=== PATIENT | female | born 2000 | race Caucasian/White ===

== ENCOUNTER 2023-11-21 09:07 | Emergency (ER) | payer SELFPAY ==
[2023-11-21] MEDS ORDERED: Sodium Chloride 0.9% 10 ML Syringe FLUSH PRN (09:55)
[2023-11-21 10:23] LABS: BASOPHILS ABSOLUTE AUTO 0.03 K/uL (0.02-0.10); BASOPHILS PERCENT AUTO 0.3 % (0.0-0.5); HEMATOCRIT 41.3 % (37.0-47.0); HEMOGLOBIN 13.4 g/dL (11.5-16.5); LYMPHOCYTES ABSOLUTE AUTO 1.78 K/uL (1.50-4.00); LYMPHOCYTES PERCENT AUTO 17.4 % (20.0-40.0); MEAN CORPUSCULAR HGB CONC 32.4 g/dL (31.0-35.0); MEAN CORPUSCULAR VOLUME 93 fL (76-96); MEAN PLATELET VOLUME 10.9 fL (6.0-10.0); MONOCYTES PERCENT AUTO 8.8 % (3.0-10.0); NEUTROPHILS ABSOLUTE AUTO 7.44 K/uL (2.00-7.50); NEUTROPHILS PERCENT AUTO 72.5 % (45.0-70.0); PLATELET COUNT,PLT 225 K/uL (150-500); RED BLOOD CELL COUNT 4.46 M/uL (3.80-5.80); RED CELL DISTRIBUTION WIDTH 12.8 % (11.0-16.0); WHITE BLOOD CELL COUNT,WBC 10.3 K/uL (4.0-11.0)
[2023-11-21 10:36] LABS: APPEARANCE,URINE CLEAR (CLEAR); BILIRUBIN,URINE SMALL (NEGATIVE); COLOR,URINE YELLOW; GLUCOSE,URINE NEGATIVE (NEGATIVE); KETONES,URINE TRACE mg/dL (NEGATIVE); LEUKOCYTE ESTERASE,URINE TRACE (NEGATIVE); NITRITE,URINE NEGATIVE (NEGATIVE); OCCULT BLOOD,URINE MODERATE (NEGATIVE); PROTEIN,URINE 30 mg/dL (NEGATIVE); UROBILINOGEN,URINE 0.2 E.U./dL (0.2-1.0)
[2023-11-21 10:40] LABS: EPITHELIAL CELLS,URINE MODERATE /HPF; WBC,URINE 20-30 /HPF
[2023-11-21 10:43] LABS: A/G RATIO 1.2 (0.8-2.0); ALBUMIN 3.8 g/dL (3.4-5.0); ANION GAP 12.4 mmol/L (5.0-15.0); BILIRUBIN TOTAL 0.7 mg/dL (0.0-1.0); BUN/CREATININE RATIO 16.7 (6-25); CALCIUM 8.6 mg/dL (8.5-10.1); CREATININE 0.72 mg/dL (0.55-1.02); EST CRCL DRUG DOSING (CG) 110.28 mL/min; POTASSIUM,K 3.4 mmol/L (3.5-5.1)
[2023-11-21] MEDS ORDERED: Piperacillin/Tazobactam 3.375 GM in Sodium Chloride 0.9% 100 ML IV SCH (13:45)
[2023-11-21] MEDS ORDERED: Morphine 4 MG/ML VIAL IVPUSH ONE (15:24)
[2023-11-21] MEDS ORDERED: Ondansetron 4 MG/2 ML SDV IVPUSH ONE (15:25)
[2023-11-21] MEDS ORDERED: Lactated Ringers 1,000 ML IV SCH (15:30)
[2023-11-21] MEDS ORDERED: Morphine 4 MG/ML VIAL ONE (15:33)
[2023-11-21] MEDS ORDERED: Ondansetron 4 MG/2 ML SDV ONE (15:33)
[2023-11-21] MEDS ORDERED: Piperacillin/Tazobactam 3.375 GM in Sodium Chloride 0.9% 100 ML IV ONE (16:00)
== END 2023-11-21 16:07 ==
LOC: LB.ED 09:07
DX: K35.30 Acute appendicitis with localized peritonitis, without perforation or gangrene (principal); E66.9 Obesity, unspecified; F17.210 Nicotine dependence, cigarettes, uncomplicated; Z68.41 Body mass index [BMI] 40.0-44.9, adult
CPT/HCPCS: 36415; 74176; 80053; 81001; 85025; 87086; 96361; 96365; 96375; 99284-25; 99285; A0425; A0429; J2270; J2405; J2543; J3490; J7120